=== PATIENT | female | born 1995 | race Caucasian/White ===

== ENCOUNTER 2020-03-30 18:06 | Emergency (ER) | payer MEDICAID, SELFPAY ==
[2020-03-30 18:15] VITALS: BP 120/70; PULSE 102; RESP 18; TEMP 39.1; O2SAT 98; BMI 34.2
--- NOTE | 2020-03-30 18:23 | HMH.EDUTC ---
[facility] [place]ression: Strep throat Disposition: Home, Self-Care Condition on Discharge: Good Instructions: DI for Strep Throat, Azithromycin Additional Instructions: *Monitor Temp, Over the counter Motrin or Tylenol as directed/as needed Tylenol every 4 hours and Motrin every 6 hours (as long as your family doctor has told you that you can take it) for fever or pain. and straight to ER if unable to lower temp less than 101.0 after medication given *Warm salt water gargles may help to soothe the throat *Throat Lozenges *Warm fluids like tea with honey may help to soothe the throat *Sleep elevated *Humidifier/Vaporizer *If you did not take Penicillin shot or was unable to, start taking antibiotic immediately and make sure that you take it for the FULL length of time although you should start to feel better in 24-48 hours *change toothbrush and toothpaste 24-48 hours after starting to take antibiotics so you do not reinfect yourself Monitor Temp. Tylenol and/or Ibuprofen as needed. ER if fever is no less than 101 despite alternating Tylenol and Ibuprofen * Encourage fluids, water, Gatorade, powerade, pedialyte if infant/toddler/or child *Cold fluids, popsicles and ice cream may feel good on his throat Follow up IMMEDIATELY for new or worsening symptoms or no Noticeable improvement over the next 48-72 hours. 911 for difficulty breathing or swallowing Prescriptions: Azithromycin [Z-Yared 250mg Tab] 250 mg PO DIRECTED #6 tab Transmission Status: Received by [id number] Referrals: PCP,No [Primary Care Provider] - As needed Time of Disposition: 18:58 Medical Decision Making - Jai Inquiry Pt receiving controlled substance: No Jai was queried for this patient: No Vital Signs: 03/30/20 18:15 Temperature 102.3 F H Temperature Source Oral Pulse Rate [Right Brachial] 102 H Respiratory Rate 18 Blood Pressure [Right Arm] 120/70 Blood Pressure Mean [Right Arm] 86 Blood Pressure Source [Right Arm] Automatic Cuff Blood Pressure Position [Right Arm] Sitting 02 Sat by Pulse Oximetry 98 Oxygen Delivery Method Room Air - Lab Data Lab results reviewed: Yes: I reviewed the patient's lab results. Lab Results 03/30/20 18:21: Strep [facility] Positive A 03/30/20 18:37: Tst Clinic Negative Orders (Tests/Meds): ED MEDICATIONS Discontinued Medications Generic Name Dose Route Start Last Admin Trade Name Thomas GEORGES Reason Stop Dose Admin Acetaminophen 650 mg 03/30/20 18:34 03/30/20 18:46 Acetaminophen 325mg Tab PO 03/30/20 18:35 650 mg ONCE ONE Administration Ibuprofen 800 mg 03/30/20 18:34 03/30/20 18:47 Ibuprofen 400 Mg Tablet PO 03/30/20 18:35 800 mg ONCE ONE Administration Methylprednisolone Sodium Succinate 125 mg 03/30/20 18:33 03/30/20 18:47 Methylprednisolone Sod Succ 125mg Vial IM 03/30/20 18:34 125 mg ONCE ONE Administration [facility] [place] - General Stated complaint: sore throat headache sob Time Seen by Provider: 03/30/20 18:23 Mode of Arrival: Ambulatory Source of Information: Patient Limitations: No Limitations Description of Symptoms (Recalled from Triage Doc. by RN): PATIENT C/O SORE THROAT AND HEADACHE SINCE YESTERDAY; REPORTS SHE DID HAVE A FEVER LAST NIGHT WELL HEENT Symptoms (Recalled from RN notes): Yes Resp Symptoms (Recalled from RN notes): No Skin Symptoms (Recalled from RN notes): No MS Symptoms (Recalled from RN notes): No Functional Status (Recalled from RN notes): WNL - History of Present Illness Provider Complaint: Patient state that she started having fever yesterday States that she has been having sore throat, tonsils swollen hurts when she swallows FAYE and over all not feeling well States that today she has continued to have fever, sore throat, headache and not feeling well so she come in - Related Data Previous Rx's Medication Instructions Recorded Azithromycin [Z-Yared 250mg Tab] 250
[2020-03-30 18:28] LABS: UTC Strep Screen (Rapid) Positive (Negative)
[2020-03-30 18:39] LABS: UTC Pregnancy Test, Urine Negative (Negative)
[2020-03-30 19:00] VITALS: TEMP 39.1
[2020-03-30 19:10] VITALS: BP 120/70; PULSE 102; RESP 18; TEMP 37.4; O2SAT 98
== END 2020-03-30 19:14 | disposition home or self-care (01) ==
PROVIDERS: Emergency Provider Nurse Practitioner
DX: J02.0 Streptococcal pharyngitis (principal); F17.210 Nicotine dependence, cigarettes, uncomplicated
CPT/HCPCS: 81025; 87880; 99202

== ENCOUNTER 2024-04-01 08:31 | Emergency (ER) | payer OTHER, SELFPAY ==
[2024-04-01 08:53] VITALS: BP 135/89; PULSE 85; RESP 20; TEMP 36.9; O2SAT 98; BMI 36.0
--- NOTE | 2024-04-01 09:02 | EXP.UTC ---
Discharge Plan Disposition Patient Disposition: Home, Self-Care Condition: Good Prescriptions Prescriptions: New guaifenesin [Mucinex] 1,200 mg tablet extended release 12hr 1,200 mg PO Q12H PRN (Reason: congestion) Qty: 20 0RF azithromycin [Zithromax Z-Yared] 250 mg tablet See Rx Instructions .ROUTE .COMPLEX 5 Days Qty: 6 0RF Rx Instructions: For 250 mg dose pack: take 500 mg today (day 1), then 250 mg for 4 days (days 2-5) prednisone 20 mg tablet 20 mg PO BID 5 Days Qty: 10 0RF No Action Vraylar 3 mg Capsule 3 mg PO DAILY duloxetine 20 mg Capsule, Delayed Rel Sprinkle 20 mg PO BID Referrals Follow up/Referrals: Provider,Referral, MD [Primary Care Provider] - See instructions Activity Restrictions/Add. Instructions Additional Instructions/Restrictions: Start antibiotic today. Be sure to complete entire prescription even if feeling better Monitor temp. Tylenol every 4 hours as needed and / or ibuprofen every 6 hours as needed ( As long as your primary care physician has told you that it ok to take both. For fever/aches/pains ER if no less than 101 despite Tylenol or Motrin Humidifier/vaporizer or hot steamy shower Mucinex during the day for your cough and cough suppressant only at night. Be sure to drink lots of water. Insurance may not cover a prescriptions for mucinex. Might be cheaper to get 400mg tablets and take 2 tablet in the morning, mid-day and evening with lots of water. *Promethazine DM cough syrup will cause drowsiness. Use only at night. No driving, operating machinery or caring for small children after taking it *Tessalon Perles will not cause drowsiness but use at bedtime to help stop cough so that you may get some rest. *Start steroid today. Helps with inflammation therefore, cough and wheezing. Follow directions on the package. Reviewed side effects. Patient reports taking them before. Follow up IMMEDIATELY for new or worsening of symptoms OR no noticeable improvement over the next 48-72 hours. 911 immediately for any life threatening symptoms such as chest pain or difficulty breathing Clinical Impressions Clinical Impression: Bronchitis Stand Alone Forms Stand Alone Forms: Work/School Release Instructions Patient Instructions: Acute Bronchitis, Cough, Azithromycin Print Language Print Language: [place] Discharge [place] [facility] [place] General Stated complaint: head/chest congestion Mode of Arrival: Ambulatory Source of Information: Patient Time Seen by Provider: 04/01/24 09:03 Description of Symptoms (Recalled from Triage Doc. by RN): SOB, COUGH, CONGESTION, SINUS PAIN/PRESSURE X1 WEEK HEENT Symptoms (Recalled from RN notes): No Resp Symptoms (Recalled from RN notes): Yes Skin Symptoms (Recalled from RN notes): No MS Symptoms (Recalled from RN notes): No Functional Status (Recalled from RN notes): WNL History of Present Illness Provider Complaint: Patient states that for the last week she has been having pain/burning in her lungs when she takes a deep breath, cough, sinus pain and pressure and cough States that today she still not feeling any better States that she has started coughing up mucous so she came in wanting to get checked Related Data Home Medications ?Medication ?Instructions ?Recorded ?Confirmed cariprazine 3 mg capsule (Vraylar) 3 mg PO DAILY 04/01/24 04/01/24 duloxetine 20 mg capsule,delayed 20 mg PO BID 04/01/24 04/01/24 release sprinkle Previous Rx's ?Medication ?Instructions ?Recorded azithromycin 250 mg tablet See Rx Instructions PO .COMPLEX 5 04/01/24 (Zithromax Z-Yared) days #6 tabs guaifenesin 1,200 mg tablet, 1,200 mg PO Q12H PRN congestion 04/01/24 extended release 12 hr (Mucinex) #20 tabs prednisone 20 mg tablet 20 mg PO BID 5 days #10 tabs 04/01/24 Allergies Allergy/AdvReac Type Severity Reaction Status Date / Time Penicillins Allergy Verified 07/21/19 20:01 Worker's Comp Is this a Worker's Comp case?: No [facility] Disclaimer: The information contained in this section may have been updated after the patient was seen, as this information can be updated by other users. Social History Smoking Status: Former smoker tobacco type: cigarettes packs per day: 1 alcohol intake: never current occupational status: other Travel in the last 8 weeks: None household members: significant other housing: house ROS Obtained: Yes All systems reviewed & no additional complaints except as documented and Yes Systems reviewed as appropriate & no additional complaints except as documented Constitutional Constitutional: Reports system reviewed and no additional complaints, except as documented and Reports as per HPI ENT Ears, Nose, Mouth, and Throat: Reports system reviewed and no additional complaints, except as documented, Reports as per HPI, Reports sinus pain and Reports sinus pressure Cardiovascular Cardiovascular: Reports system reviewed and no additional complaints, except as documented and Reports as per HPI Respiratory Respiratory: Reports system reviewed and no additional complaints, except as documented, Reports as per HPI, Reports shortness of breath (on and off), Reports chest congestion and Reports cough Gastrointestinal Gastrointestingal: Reports system reviewed and no additional complaints, except as documented and as per HPI Physical Exam General General appearance: alert and in no apparent distress ENT ENT exam: Present mucous membranes moist Expanded ENT Exam Nose exam: Present sinus tenderness Throat exam: Present other (PND noted ) Respiratory Respiratory exam: Present normal lung sounds bilaterally; Absent respiratory distress or wheezes Cardiovascular Cardiovascular exam: Present regular rate, normal rhythm and normal heart sounds Abdominal Exam Abdominal exam: Present soft and normal bowel sounds; Absent distention or tenderness Neurological Exam Neurological exam: Present alert, oriented X3 and normal gait Medical Decision Making Medical Records Screening: Per USPSTF and CDC recommendations, given the prevalence of disease in our region, it is our hospital?s policy to screen for HIV and viral Hepatitis for all patients aged 18 and over and those with ongoing risk factors. Jai Inquiry Pt receiving controlled substance: No Jai was queried for this patient: No Vital Signs: 04/01/24 08:53 Temperature 98.4 F Temperature Source Oral Pulse Rate [Left Radial] 85 Respiratory Rate 20 Blood Pressure [Left Arm] 135/89 Blood Pressure Mean [Left Arm] 104 02 Sat by Pulse Oximetry 98 Lab Data Lab results reviewed: Yes I reviewed the patient's lab results. Orders (Tests/Meds): ORDERS Category Date Time Status CXR 2 view (NOT portable) [XR chest 2V] Stat Exams 04/01/24 09:01 Ordered Radiology Data #1: Image(s): Chest Medical Decision Narrative: Patient waiting on CXR does not want to wait any longer to get it will cover for walking pneumonia as this is the concern with her symptoms
[2024-04-01 09:12] LABS: UTC Pregnancy Test, Urine Negative (Negative)
[2024-04-01 09:46] VITALS: BP 135/89; PULSE 85; RESP 20; TEMP 36.9
== END 2024-04-01 09:46 | disposition home or self-care (01) ==
PROVIDERS: Emergency Provider Nurse Practitioner
DX: J40 Bronchitis, not specified as acute or chronic (principal); R06.02 Shortness of breath; R05.9 Cough, unspecified; R09.81 Nasal congestion; J34.89 Other specified disorders of nose and nasal sinuses
CPT/HCPCS: 81025; 99212; G0381